=== PATIENT | male | born 1995 | race Caucasian/White ===

== ENCOUNTER → 2021-06-18 | Outpatient (CLI) | payer OTHER ==
[~2021-06-18] MED LIST: ISOVUE-300 61% 50ML VIAL As Ordered ONE; LIDOCAINE 1% MDV 20ML VIAL As Ordered ONE; TRIAMCINOLONE ACETONIDE SUSP 40 MG/ML VIAL (J3301) As Ordered ONE
== END ==
LOC: M RADPRO 14:43
PROVIDERS: ATTEND Physician Assistant Surgical
DX: S73.121A Ischiocapsular ligament sprain of right hip, initial encounter (principal)
CPT/HCPCS: 20610; 77002; J3301; Q9967

== ENCOUNTER 2023-02-16 23:04 | Emergency (ER) | payer OTHER ==
[~2023-02-16] VITALS: Ht 172.7 cm; Wt 85.1 kg
[2023-02-17 08:16] VITALS: BP 140/79; TEMP 98.8; O2SAT 98
== END 2023-02-17 08:24 | disposition home or self-care (01) ==
LOC: M ED 23:04
DX: B34.1 Enterovirus infection, unspecified (principal); Z11.52 Encounter for screening for COVID-19

== ENCOUNTER → 2023-06-05 | Outpatient (REF) | payer OTHER ==
[2023-06-05 09:23] LABS: SEMEN APPEARANCE OPAQUE (OPAQUE); SEMEN VISCOSITY LIQUID (LIQUID); SEMEN VOLUME 3.4 ml (2.0-5.0)
[2023-06-05 09:24] LABS: WBC CONCENTRATION >1 M/ml (<=1 M/ml)
== END ==
LOC: M SMT 09:11
PROVIDERS: ATTEND Urology
DX: N46.9 Male infertility, unspecified (principal)

== ENCOUNTER → 2023-09-24 | Outpatient (CLI) | payer OTHER | LOC: M RAD 15:25 | PROVIDERS: ATTEND Internal Medicine Medical Oncology | DX: M25.50 Pain in unspecified joint (principal) ==

== ENCOUNTER → 2024-02-15 | Outpatient (CLI) | payer OTHER | LOC: M RAD 10:02 | PROVIDERS: ATTEND Internal Medicine Medical Oncology | DX: R59.0 Localized enlarged lymph nodes (principal) ==

== ENCOUNTER → 2024-04-18 | Outpatient (REF) | payer OTHER ==
[2024-04-18 18:39] LABS: TOTAL PROTEIN,RANDOM URINE 97.5 MG/DL (0.0-14.0)
[2024-04-18 18:44] LABS: ANTI-STREPTOLYSIN O QUANT 117.9 IU/ML (<195); COMPLEMENT C3 163.4 MG/DL (82.0-160.0); CREATININE,RANDOM URINE 32.8 MG/DL
[2024-04-18 18:45] LABS: COMPLEMENT C4 27.3 MG/DL (12-36); RHEUMATOID FACTOR QUANT 7.2 IU/ML (<14)
== END ==
LOC: M LAB REF 17:13
PROVIDERS: ATTEND Internal Medicine Nephrology
DX: N18.2 Chronic kidney disease, stage 2 (mild) (principal)

== ENCOUNTER → 2024-04-28 | Outpatient (REF) | payer OTHER | LOC: M SFHCRHEU 09:47 | PROVIDERS: ATTEND Internal Medicine Rheumatology | DX: Z53.9 Procedure and treatment not carried out, unspecified reason (principal) ==

== ENCOUNTER → 2024-05-05 | Outpatient (REF) | payer OTHER ==
[2024-05-05 10:14] LABS: ALBUMIN 3.9 G/DL (3.2-5.2); ALKALINE PHOSPHATASE 61 U/L (40-129); ALT/SGPT 39 U/L (7.0-40); AST/SGOT 22 U/L (<34); BILIRUBIN,TOTAL 0.6 MG/DL (0.3-1.2); BLOOD UREA NITROGEN 21 MG/DL (9-23); C REACTIVE PROTEIN QUANTITATIV < 0.50 MG/DL (<1.0); CALCIUM LEVEL 9.8 MG/DL (8.5-10.1); CARBON DIOXIDE LEVEL 28 MMOL/L (20-31); CHLORIDE LEVEL 109 MMOL/L (98-107); CREATININE FOR GFR 1.37 MG/DL (0.70-1.30); GLOMERULAR FILTRATION RATE > 60.0 (>60); GLUCOSE, FASTING 72 MG/DL (60-100); POTASSIUM SERUM 4.6 MMOL/L (3.5-5.1); SODIUM LEVEL 142 MMOL/L (136-145); TOTAL PROTEIN 6.9 G/DL (5.7-8.2)
[2024-05-05 10:16] LABS: TOTAL 25(OH) VITAMIN D 14.3 NG/ML (20.0-100.0)
[2024-05-05 10:17] LABS: IMMUNOGLOBULIN A 165.4 MG/DL (40-350)
[2024-05-05 10:28] LABS: BASO # 0.1 10^3/uL (0.0-0.2); BASO % 0.9 % (0.0-1.0); EOS # 0.1 10^3/uL (0.0-0.5); EOS % 1.6 % (0.0-3.0); HEMATOCRIT 45.8 % (42.0-52.0); HEMOGLOBIN 15.5 g/dl (13.5-17.5); HEPATITIS B SURFACE ANTIGEN NEGATIVE (NEGATIVE); LYMPH # 1.5 10^3/uL (1.5-5.0); LYMPH % 20.9 % (24.0-44.0); MEAN CORPUSCULAR HEMOGLOBIN 29.3 pg (27.0-33.0); MEAN CORPUSCULAR HGB CONC 33.8 g/dl (32.0-36.5); MEAN CORPUSCULAR VOLUME 86.6 fl (80.0-96.0); MONO # 0.8 10^3/uL (0.0-0.8); MONO % 10.6 % (2.0-8.0); NEUTROPHILS # 4.6 10^3/uL (1.5-8.5); NEUTROPHILS % 65.7 % (36.0-66.0); PLATELET COUNT, AUTOMATED 371 10^3/uL (150-450); RED BLOOD COUNT 5.29 10^6/uL (4.30-6.10); WHITE BLOOD COUNT 7.1 10^3/uL (4.0-10.0)
[2024-05-05 10:33] LABS: ERYTHROCYTE SEDIMENTATION RATE 11 mm/hr (0-15)
[2024-05-05 10:49] LABS: HEPATITIS C VIRUS ABY INDEX < 0.02 INDEX (<0.8)
[2024-05-05 11:20] LABS: IMMUNOGLOBULIN G 797 MG/DL (650-1600)
[2024-05-06 12:24] LABS: CRYOGLOBULINS NEGATIVE (NEGATIVE)
[2024-05-06 15:13] LABS: ANGIOTENSIN 1 CONVERTING ENZYM 48 U/L (9-67)
[2024-05-06 15:47] LABS: HEPATITIS B CORE ANTIBODY IGG NON-REACTIVE (NON-REACTIVE)
[2024-05-07 01:23] LABS: SSA SJOGRENS A <1.0 NEG AI (<1.0 NEG); SSB SJOGRENS B <1.0 NEG AI (<1.0 NEG)
[2024-05-08 04:03] LABS: Antimyeloperxidase(MPO) Abs < 1.0 AI (<1.0); Antiproteinase 3 (PR-3) Abs < 1.0 AI (<1.0)
[2024-05-09 13:27] LABS: QuantiFERON-TB Gold Plus NEGATIVE (NEGATIVE)
[2024-05-09 14:07] LABS: ANCA SCREEN REFLEX Negative (Negative)
[2024-05-10 02:51] LABS: CYCLIC CITRULLINATED PEPTIDE < 16 UNITS (<20)
[2024-05-12 12:01] LABS: HLA-B27 Negative (Negative)
== END ==
LOC: M LAB REF 08:51
PROVIDERS: ATTEND Internal Medicine Rheumatology
DX: M25.50 Pain in unspecified joint (principal); A68.9 Relapsing fever, unspecified; R59.1 Generalized enlarged lymph nodes; D72.828 Other elevated white blood cell count; R80.8 Other proteinuria; R31.29 Other microscopic hematuria; N18.2 Chronic kidney disease, stage 2 (mild); R79.82 Elevated C-reactive protein (CRP)

== ENCOUNTER → 2024-06-02 | Outpatient (CLI) | payer OTHER ==
[~2024-06-02] MED LIST changes: -ISOVUE-300 61% 50ML VIAL As Ordered ONE; +MIDAZOLAM INJ 2MG/2ML VIAL As Ordered ONE; +PERCOCET 5MG/325MG TAB PO PRN; -TRIAMCINOLONE ACETONIDE SUSP 40 MG/ML VIAL (J3301) As Ordered ONE; +fentaNYL 100 MCG/2 ML INJECTION ONE; +hydrALAZINE 20MG/ML 1ML VIAL As Ordered ONE
[2024-06-02 12:20] VITALS: TEMP 97.1
[2024-06-02] MEDS: ACETAMINOPHEN 325 MG TAB PO PRN (15:15)
[2024-06-02 16:00] VITALS: BP 117/65; O2SAT 97
== END ==
LOC: M IRPRO 11:51
PROVIDERS: ATTEND Internal Medicine Nephrology
DX: R80.9 Proteinuria, unspecified (principal)
CPT/HCPCS: 50200; 76942; 88300; 99152; J2250; J3010

== ENCOUNTER → 2024-07-11 | Outpatient (CLI) | payer OTHER | LOC: M RAD 08:31 | PROVIDERS: ATTEND Internal Medicine Rheumatology | DX: M25.50 Pain in unspecified joint (principal) ==

== ENCOUNTER → 2024-07-25 | Outpatient (REF) | payer OTHER ==
[2024-07-26 18:12] LABS: CREATININE,RANDOM URINE 217.9 MG/DL
[2024-07-26 18:16] LABS: TOTAL PROTEIN,RANDOM URINE 612.6 MG/DL (0.0-14.0)
== END ==
LOC: M LAB REF 16:56
PROVIDERS: ATTEND Internal Medicine Nephrology
DX: N02 Recurrent and persistent hematuria (principal)